=== PATIENT | male | born 1970 | race Caucasian/White ===

== ENCOUNTER 2020-09-12 05:36 | Outpatient (RCR) | payer OTHER ==
[~2020-09-12] VITALS: Ht 175 cm; Wt 81.6 kg
[~2020-09-12 05:36] MED LIST: ASPI-1238 PO; OMEP-401 PO; OMG1KC PO
== END 2020-09-12 11:09 | disposition home or self-care (01) ==
LOC: PREOP 05:36
PROVIDERS: ATTEND Surgery
DX: Z01.812 Encounter for preprocedural laboratory examination (principal); Z12.11 Encounter for screening for malignant neoplasm of colon; K21.9 Gastro-esophageal reflux disease without esophagitis; Z20.822 Contact with and (suspected) exposure to COVID-19
CPT/HCPCS: 87635

== ENCOUNTER 2020-09-16 10:27 | Day surgery (SDC) | payer BC, OTHER ==
[~2020-09-16] VITALS: Ht 175 cm; Wt 82.0 kg
[~2020-09-16 10:27] MED LIST changes: +LACTATED RINGERS 1,000 ML IV ONE
[2020-09-16 10:40] VITALS: BP 128/93
[2020-09-16] MEDS ORDERED: LACTATED RINGERS 1,000 ML IV STA (10:40)
[2020-09-16] MEDS ORDERED: HURRICAINE EXT TUBE (BENZOCAINE) XX PRN (10:45)
[2020-09-16] MEDS ORDERED: PROPOFOL INJECTION 50 ML IV ONE (12:02)
[2020-09-16] MEDS ORDERED: MIDAZOLAM 2 MG/2 ML (VERSED) VIAL ONE (12:02)
[2020-09-16] MEDS ORDERED: HURRICAINE EXT TUBE (BENZOCAINE) ONE (12:08)
--- NOTE | 2020-09-16 12:15 | Progress Note-Pre Operative ---
Pre-Operative Progress Note H&P Reviewed The H&P was reviewed, patient examined and no changes noted. Date Seen by Provider: September 16, 2020 Time Seen by Provider: 12:15 Date H&P Reviewed: September 16, 2020 Time H&P Reviewed: 12:15 Pre-Operative Diagnosis: gerd, screening colonoscopy APRIL MADRID DO September 16, 2020 12:15
--- NOTE | 2020-09-16 12:44 | Progress Note-Post Operative ---
Post-Operative Progess Note Surgeon (s)/Printed Circuit Photographer (s) Surgeon APRIL MADRID DO Printed Circuit Photographer: na Pre-Operative Diagnosis gerd, screening colonoscopy Post-Operative Diagnosis normal egd, normal colon Procedure & Operative Findings Date of Procedure 09/16/20 Procedure Performed/Findings egd c biopsies, colonoscopy Anesthesia Type per clinical data coordinator Estimated Blood Loss Estimated blood loss (mL): none Specimens/Packing Specimens Removed antrum, ge APRIL MADRID DO September 16, 2020 12:44
[2020-09-16 12:45] VITALS: BP 111/74
--- NOTE | 2020-09-16 12:45 | Discharge Inst-Simple/Standard ---
Discharge Inst-Standard Patient Instructions/Follow Up Plan of Care/Instructions/FU: 2 weeks Onofre Activity as Tolerated: Yes Discharge Diet: Regular Diet APRIL MADRID DO September 16, 2020 12:45
[2020-09-16 12:50] VITALS: BP 113/72
[2020-09-16 12:55] VITALS: BP 119/81
[2020-09-16 13:15] VITALS: BP 122/88
--- NOTE | 2020-09-16 13:31 | Anesthesia-General Post-Op ---
MAC Patient Condition Mental Status/LOC: Same as Preop Cardiovascular: Satisfactory Nausea/Vomiting: Absent Respiratory: Satisfactory Pain: Controlled Complications: Absent Post Op Complications Complications None Follow Up Care/Instructions Patient Instructions None needed. Anesthesiology Discharge Order Discharge Order Patient is doing well, no complaints, stable vital signs, no apparent adverse anesthesia problems. No complications reported per nursing. HARVEY CUELLAR CRNA September 16, 2020 13:31
[2020-09-16 14:00] VITALS: BP 122/88
--- NOTE | 2020-09-16 19:52 | OPERATIVE REPORT ---
DATE OF SERVICE: 09/16/2020 PREOPERATIVE DIAGNOSES: Gastroesophageal reflux disease, screening colonoscopy. POSTOPERATIVE DIAGNOSIS: Normal esophagogastroduodenoscopy, normal colonoscopy. PROCEDURE: EGD with biopsies, colonoscopy. SURGEON: April Adhikari DO ANESTHESIA: Per ORDER PICKER. ESTIMATED BLOOD LOSS: None. COMPLICATIONS: None. INDICATIONS: The patient is a 49-year-old male with GERD and needing a screening colonoscopy. He understands risks and benefits of procedure and wished to proceed with procedure. Consent was signed in the chart. DESCRIPTION OF PROCEDURE: The patient was taken to the endoscopy suite, placed in left lateral recumbent position. Timeout was performed. Scope was inserted in mouth, down the esophagus, stomach and into the duodenum without difficulty. There were no polyps, masses or ulcerations within the duodenum. Scope was slowly retracted back into the stomach where it was further insufflated. There were no polyps, masses or ulcerations within the stomach. Scope was retroflexed noting no other pathology. Scope was returned to its normal position, slowly withdrawn until completely removed into the distal esophagus, which there were no polyps, masses or ulcerations. Biopsy of the antrum and GE junction was obtained. Scope was then slowly retracted back to completely remove, noting no other pathology. Digital rectal exam was performed. No palpable polyps, masses or ulcerations. Scope was inserted into the rectum and advanced all the way to cecum with minimal difficulty. Prep was adequate. Scope was then slowly retracted back. There were no polyps, masses or ulcerations within the cecum, ascending, transverse, descending and sigmoid colon. Once in the rectum, scope was retroflexed noting no other pathology. Scope was returned to its normal position, slowly withdrawn until completely removed. The patient tolerated procedure well without any complications, taken to recovery room in stable condition. RECOMMENDATIONS: The patient will need repeat colonoscopy in 10 years unless family history of colon cancer, which then be 5 years. Any issues before that be seen at that time. The patient with normal appearing EGD. The patient will follow up in 2 weeks to discuss biopsy results and see how his symptoms are doing. Job ID: [id number] DocumentID: [id number] Dictated Date: 09/16/2020 12:47:23 Parallel Computing Software Engineer Date: 09/16/2020 19:51:27 Dictated By: APRIL ADHIKARI DO
== END 2020-09-16 14:00 | disposition home or self-care (01) ==
LOC: ENDO 10:27
PROVIDERS: ATTEND Surgery
DX: Z12.11 Encounter for screening for malignant neoplasm of colon (principal); K21.00 Gastro-esophageal reflux disease with esophagitis, without bleeding; F12.20 Cannabis dependence, uncomplicated; Z79.82 Long term (current) use of aspirin; Z79.899 Other long term (current) drug therapy; Z87.891 Personal history of nicotine dependence; Z20.822 Contact with and (suspected) exposure to COVID-19; Z79.02 Long term (current) use of antithrombotics/antiplatelets; Z82.49 Family history of ischemic heart disease and other diseases of the circulatory system